=== PATIENT | female | born 1990 | race Caucasian/White ===

== ENCOUNTER 2016-12-26 15:59 | Emergency (ER) | payer OTHER ==
[~2016-12-26] VITALS: Ht 167.6 cm; Wt 62.1 kg
[2016-12-26 16:05] VITALS: BP 124/72
--- NOTE | 2016-12-26 16:41 | NUR ---
PT TO BED 8 AT THIS TIME.
--- NOTE | 2016-12-26 16:42 | NUR ---
PT. PRESENTS TO ED WITH C/O CP/PRESSURE AND SOB X 2 DAYS, PT. DENIES SOB AT THIS TIME, NO VISIBLE SIGNS OF DISTRESS NOTED, BREATHING EVEN AND UNLABORED, VSS, AAOX4, AMBULATORY, GAIT STEADY, PT. STATES SHE MAY BE , WILL CONTINUE TO MONITOR
[2016-12-26] MEDS ORDERED: NACL 0.9% 1,000 ML IV ONE (16:45)
[2016-12-26] MEDS ORDERED: ACETAMINOPHEN EXTRA STRENGTH 500 MG TAB PO ONE (16:45)
[2016-12-26] MEDS ORDERED: MAG SULF 2000 MG/WATER PREMIX 50 ML IV ONE (16:50)
[2016-12-26 17:11] LABS: BASOPHILS # (AUTO) 0.2 K/uL (0.00-0.22); BASOPHILS % (AUTO) 1.3 % (0.0-2.0); EOSINOPHILS # (AUTO) 0.2 K/uL (0-0.4); EOSINOPHILS % (AUTO) 1.5 % (0.0-4.0); HEMATOCRIT 41.1 % (36-48); HEMOGLOBIN 13.1 g/dL (12.0-16.0); LYMPHOCYTES # (AUTO) 2.3 K/uL (2.5-16.5); LYMPHOCYTES % (AUTO) 19.6 % (20.5-51.1); MEAN CORPUSCULAR HEMOGLOBIN 29 pg (27-31); MEAN CORPUSCULAR HGB CONC 32 g/dL (33-37); MEAN CORPUSCULAR VOLUME 90 fL (80-94); MONOCYTES # (AUTO) 0.9 K/uL (0.8-1.0); MONOCYTES % (AUTO) 7.9 % (1.7-9.3); NEUTROPHILS # (AUTO) 8.1 K/uL (1.8-7.7); NEUTROPHILS % (AUTO) 69.7 % (42.2-75.2); PLATELET COUNT (AUTO) 239 K/uL (140-450); RED BLOOD CELL COUNT(AUTO) 4.55 MIL/uL (4.20-5.40); RED CELL DISTRIBUTION WIDTH 12.6 % (11.6-13.7); WHITE BLOOD COUNT (AUTO) 11.7 K/uL (4.8-10.8)
[2016-12-26 17:33] LABS: ANION GAP 12.9 (8-16); CALCIUM 8.3 mg/dL (8.5-10.1); CARBON DIOXIDE 26.9 mmol/L (21-32); CREATININE 0.7 mg/dL (0.6-1.3); POTASSIUM 3.8 mmol/L (3.5-5.1)
[2016-12-26 17:36] LABS: ALBUMIN 3.6 g/dL (3.4-5.0); TOTAL BILIRUBIN 1.2 mg/dL (0.0-1.0); TOTAL PROTEIN, SERUM 7.4 g/dL (6.4-8.2)
[2016-12-26 17:45] LABS: INR 1.1 (0.8-1.2); PARTIAL THROMBOPLASTIN TIME 27.2 secs (22-35.6); PROTHROMBIN TIME 10.2 secs (10.8-13.4)
--- NOTE | 2016-12-26 19:19 | NUR ---
RECEIVED PATIENT REPORT FROM DAY SHIFT HARIKA HUNTER. 26 Y/O FEMALE IN W/ CHEST PAIN/SOB. DENIES PAIN AT THIS TIME. NO NAUSEA/VOMITING. SHE JUST FOUND OUT TODAY HERE AT THE HOSPITAL THAT SHE IS 6 WEEKS . PATIENT UNKNOWN OF THE . NO VAGINAL DISCHARGE CLAIMED. STABLE, NO SIGNS OF DISTRESS AT THIS TIME.
[2016-12-26 21:00] VITALS: BP 108/65
--- NOTE | 2016-12-26 21:00 | NUR ---
Patient discharged with v/s stable. Written and verbal after care instructions given and explained. Patient verbalized understanding. Ambulatory with steady gait. All questions addressed prior to discharge. Advised to follow up with PMD.
== END 2016-12-26 21:00 | disposition home or self-care (01) ==
LOC: MED 15:59
DX: O99.411 Diseases of the circulatory system complicating pregnancy, first trimester (principal); R07.89 Other chest pain; Z3A.01 Less than 8 weeks gestation of pregnancy
CPT/HCPCS: 36415; 71010; 76817; 80053; 81025; 83880; 84484; 84702; 85025; 85379; 85610; 85730; 93005; 96365; 96366; 99285; J3475; J7030; Q0092

== ENCOUNTER 2017-01-01 13:36 | Inpatient (IN) | payer OTHER ==
[~2017-01-01] VITALS: Ht 167.6 cm; Wt 58.6 kg
[2017-01-01 13:36] VITALS: BP 108/75
--- NOTE | 2017-01-01 17:15 | NUR ---
26/F BIB BOYFRIEND C/O LEFT LOWER ABDOMINAL PAIN, SOB & CHEST PAIN X LAST FRIDAY. PT STATES 6 WEEKS AT THIS TIME. PT DENIES N/V/D; SKIN IS PINK/WARM/DRY; AAOX4 WITH EVEN AND STEADY GAIT; LUNGS CLEAR BL; HR EVEN AND REGULAR; PT DENIES ANY FEVER OR COUGH AT THIS TIME; PATIENT STATES PAIN OF 8/10 AT THIS TIME; VSS; PATIENT POSITIONED FOR COMFORT; HOB ELEVATED; BEDRAILS UP X2; BED DOWN. ER MD MADE AWARE OF PT STATUS.
--- NOTE | 2017-01-01 18:00 | NUR ---
LAB AT BEDSIDE
[2017-01-01 18:31] LABS: ANION GAP 14.9 (8-16); CALCIUM 8.3 mg/dL (8.5-10.1); CARBON DIOXIDE 23.5 mmol/L (21-32); CREATININE 0.6 mg/dL (0.6-1.3); POTASSIUM 3.4 mmol/L (3.5-5.1); TOTAL BILIRUBIN 0.9 mg/dL (0.0-1.0)
[2017-01-01 18:32] LABS: ALBUMIN 3.8 g/dL (3.4-5.0); MAGNESIUM 1.9 mg/dL (1.8-2.4); PHOSPHORUS 3.9 mg/dL (2.5-4.9); TOTAL PROTEIN, SERUM 7.9 g/dL (6.4-8.2)
[2017-01-01 18:47] LABS: THYROID STIMULATING HORMONE 0.66 uIU/mL (0.34-3.76)
--- NOTE | 2017-01-01 19:09 | NUR ---
GAVE REPORT TO EVIE
--- NOTE | 2017-01-01 19:13 | NUR ---
Pt report given to HARIKA XIE. Transfer of care at this time.
--- NOTE | 2017-01-01 19:15 | NUR ---
GOT REPORT FROM HARIKA HAYES. PT. RESTING IN BED, NO S/SX OF DISTRESS AT THIS TIME.
[2017-01-01] MEDS ORDERED: ACETAMINOPHEN EXTRA STRENGTH 500 MG TAB PO ONE (19:55)
--- NOTE | 2017-01-01 20:55 | NUR ---
Patient will be admitted to care of . Admited to TELEMETRY. Will go to [id number]. Belongings list completed. Report to HARIKA LAW.
[2017-01-01 21:00] VITALS: BP 100/57
--- NOTE | 2017-01-01 21:00 | NUR ---
ADMITTED A26 YEARS OLD FEMALE TO ROOM 105B WITH C/O CHGEST PAIN ,SOB AND SLIGHT VAGINAL BLEEDING FROM ER. AWAKE ,ALERT AND ORIENTEDX4. ORIENTED TO SURROUNDINGS, CALL LIGHT WITHIN REACH. IV TO LEFT AC INTACT AND SITE CLEAR. SR ON THE MONITOR. INSTRUCTED TO CALL IF NEEDED HELP.
[2017-01-01] MEDS ORDERED: ACETAMINOPHEN 325 MG TAB PO PRN (21:05)
[2017-01-01] MEDS ORDERED: ONDANSETRON 4 MG/2 ML VIAL IVP PRN (21:05)
[2017-01-02] VITALS: BP 92/61
--- NOTE | 2017-01-02 | NUR ---
STILL AWAKE, V/S TAKEN NO C/O PAIN OR RESPIRATORY DISTRESS.
[2017-01-02 04:00] VITALS: BP 91/53
--- NOTE | 2017-01-02 04:00 | NUR ---
AWAKEN FOR V/S,NO COMPLAINTS OF PAIN OR SOB.
--- NOTE | 2017-01-02 05:59 | NUR ---
SEQUENTIAL NOT APPLIED, PT AMBULATORY.
--- NOTE | 2017-01-02 07:54 | NUR ---
PATIENT HAS BEEN SCREENED AND CATEGORIZED MODERATE NUTRITION RISK. PATIENT WILL BE SEEN WITHIN 3-5 DAYS OF ADMISSION. 01/04/17-01/06/[address]
--- NOTE | 2017-01-02 08:00 | NUR ---
RECEIVED REPORT FROM ANI CHARGE NURSE RN FOR CONTINUITY OF CARE. PATIENT AWAKE A/O X4 NO S/S OF RESP DISTRESS NOTED NO COMPLAIN OF PAIN. NO N/V AT THIS TIME. IV SITE LT AC GAUGE 20 INTACT AND PATENT. ABLE TO MAKE NEEDS KNOWN FAMILY MEMBER AT THE BED SIDE HELPING WITH THE NEEDS. PLAN OF CARE DISCUSSED WITH THE PATIENT VITALS STABLE WILL CONTINUE TO MONITOR.
--- NOTE | 2017-01-02 08:15 | NUR ---
DR BEE VISITED PATIENT NEW ORDER CARRIED OUT.
[2017-01-02] MEDS ORDERED: POTASSIUM CHLORIDE 10 MEQ TABER PO SCH (09:00)
--- NOTE | 2017-01-02 09:20 | NUR ---
RECEIVED REPORT FROM HARIKA CORRAL, PTAudra DELGADO, WILL CONTINUE TO MONITOR
[2017-01-02 09:29] LABS: BASOPHILS # (AUTO) 0.1 K/uL (0.00-0.22); BASOPHILS % (AUTO) 1.4 % (0.0-2.0); EOSINOPHILS # (AUTO) 0.2 K/uL (0-0.4); EOSINOPHILS % (AUTO) 2.6 % (0.0-4.0); HEMATOCRIT 40.8 % (36-48); HEMOGLOBIN 13.3 g/dL (12.0-16.0); LYMPHOCYTES # (AUTO) 2.4 K/uL (2.5-16.5); LYMPHOCYTES % (AUTO) 26.6 % (20.5-51.1); MEAN CORPUSCULAR HEMOGLOBIN 29 pg (27-31); MEAN CORPUSCULAR HGB CONC 33 g/dL (33-37); MEAN CORPUSCULAR VOLUME 90 fL (80-94); MONOCYTES # (AUTO) 0.6 K/uL (0.8-1.0); MONOCYTES % (AUTO) 6.6 % (1.7-9.3); NEUTROPHILS # (AUTO) 5.7 K/uL (1.8-7.7); NEUTROPHILS % (AUTO) 62.8 % (42.2-75.2); PLATELET COUNT (AUTO) 250 K/uL (140-450); RED BLOOD CELL COUNT(AUTO) 4.54 MIL/uL (4.20-5.40); RED CELL DISTRIBUTION WIDTH 12.5 % (11.6-13.7)
[2017-01-02 09:31] VITALS: BP 89/59
--- NOTE | 2017-01-02 11:00 | NUR ---
CHECKED IN ON PATIENT, PT. RESTING COMFORTABLY, WILL CONTINUE TO MONITOR
--- NOTE | 2017-01-02 11:30 | NUR ---
PAGED DR. BEE REGARDING RHYTHM, AWAITING CALL BACK
[2017-01-02 11:31] VITALS: BP 93/50
--- NOTE | 2017-01-02 12:32 | NUR ---
PT. STATES PAIN 01/06, CHECKED BP, BP 94/60, OFFERED PATIENT TYLENOL OR NORCO FOR PAIN HER BP IS TOO LOW FOR MORPHINE, PT. REFUSED MEDS Addendum: 01/02/17 at 1234 by Tracey Mejia RN WRONG PT., PT. STATES NO PAIN AT THIS TIME
--- NOTE | 2017-01-02 13:07 | NUR ---
PAGED DR. BEE AGAIN, AWAITING CALL BACK
--- NOTE | 2017-01-02 13:28 | NUR ---
CM NOTE INITIAL REVIEW FAXED TO [facility] / FAX# [phone], ATTN: ASTER #[phone]
--- NOTE | 2017-01-02 14:18 | NUR ---
SPOKE WITH DR. BEE, AWARE OF PT. STAUS AND ECHO RESULTS
--- NOTE | 2017-01-02 15:15 | NUR ---
DISCHARGE INSTRUCTIONS GIVEN, PT. VERBALIZED UNDERSTANDING, NO DISCHARGE PRESCRIPTION, IV REMOVED TIP INTACT, TELE BOX REMOVED, PT. DISCHARGED HOME IN STABLE CONDITION WITH HER BOYFRIEND
[2017-01-03 06:19] LABS: CHLAMYDIA TRACHOMATIS AMP DNA Negative (Negative)
== END 2017-01-02 15:15 | disposition home or self-care (01) | DRG 566 ==
LOC: MED 13:36 → MTU 20:56
PROVIDERS: ADMIT Hospitalist; ATTEND Hospitalist
DX: O99.281 Endocrine, nutritional and metabolic diseases complicating pregnancy, first trimester (principal); O99.89 Other specified diseases and conditions complicating pregnancy, childbirth and the puerperium; E87.6 Hypokalemia; R00.8 Other abnormalities of heart beat; R07.9 Chest pain, unspecified; R00.0 Tachycardia, unspecified; R06.09 Other forms of dyspnea; Z3A.01 Less than 8 weeks gestation of pregnancy
CPT/HCPCS: 36415; 80053; 83735; 84100; 84439; 84443; 84479; 84484; 85025; 85379; 87070; 87081; 87205; 87210; 87491; 99285